=== PATIENT | male | born 1945 | race Caucasian/White ===

== ENCOUNTER 2022-05-15 10:58 | Emergency (ER) | payer MEDICARE, SELFPAY ==
[2022-05-15] VITALS (38 sets, daily range): BP systolic 111–171; BP diastolic 74–97; PULSE 78–108; RESP 13–21; TEMP 36.3–36.7; O2SAT 92–100
--- NOTE | ~2022-05-15 | MR_ITS ---
EXAMINATION: MR brain/brain stem wo/w con DATE: 05/15/2022 15:36 INDICATION: Diplopia. TECHNIQUE: Magnetic resonance imaging (MRI) of the brain and brainstem was performed without and with 20 mL MultiHance intravenous contrast. COMPARISON: Head CT 05/15/2022 FINDINGS: There is no acute ischemic infarct or intracranial hemorrhage. There are scattered areas of nonspecific increased T2-weighted signal intensity in the cerebral white matter, which is within nor mal limits for the patient's age. There are old infarcts in the cerebellum bilaterally. The ventricle s are normal in size. There is mucosal thickening in the paranasal sinuses. CT images demonstrate scl erosis of some of the gonzalez of the sinuses, consistent with chronic sinusitis. There are likely delgado es of ocular lens replacement surgeries. There is a small right mastoid effusion. There is a left shayy mastoid effusion. Partially visualized is a 3.7 cm mixed solid and cystic mass in the right parotid g land. There is a mass of bone marrow replacement involving the clivus. CT images demonstrate a permea tive pattern. IMPRESSION: 1. Old infarcts involving the cerebellum. 2. Mass in the clivus. The differential diagnosis includes metastatic disease, nasopharyngeal carcino ma, multiple myeloma, chordoma, chondrosarcoma, and osteomyelitis. 3. Chronic sinusitis. 4. 3.7 cm mass in right parotid gland. The differential diagnosis includes benign mixed tumor, Warthi n tumor, and less likely primary malignancy. Ultrasound-guided fine-needle aspiration is recommended. Reviewed, dictated and finalized at location A. IMPRESSION: 1. Old infarcts involving the cerebellum. 2. Mass in the clivus. The differential diagnosis includes metastatic disease, nasopharyngeal carcinoma, multiple myeloma, chordoma, chondrosarcoma, and osteo myelitis. 3. Chronic sinusitis. 4. 3.7 cm mass in right parotid gland. The differential diagnosis includes latasha gn mixed tumor, Warthin tumor, and less likely primary malignancy. Ultrasound-g uided fine-needle aspiration is recommended.
--- NOTE | ~2022-05-15 | CT_ITS ---
EXAMINATION: CT brain wo con DATE: 05/15/2022 13:53 INDICATION: diplopia . TECHNIQUE: Computed tomography (CT) of the head was performed without intravenous contrast. The mA wa s adjusted according to patient size. Iterative reconstruction technique was employed. The dose-lengt h product was 681.00 mGy-cm. COMPARISON: None. FINDINGS: No acute intracranial hemorrhage or extra-axial fluid collection. No hydrocephalus, mass, or herniation. No acute ischemic infarct. Unremarkable dural venous sinus attenuation. No acute skull fracture. Lytic destruction of the clinoid process, posterior wall, and inferior wall of the sphenoid sinus. No definite intracranial extension. The cavernous sinuses are symmetric. Bilateral mastoid fluid, left middle ear fluid paranasal sinus mucosal thickening and air-fluid level s involving the sphenoid and ethmoid right frontal and right maxillary sinuses with areas of surround ing osseous sclerosis in the right frontal and right maxillary sinuses. Mild atrophy and chronic white matter change. Old bilateral cerebellar infarcts. Bilateral basal gang jonny calcification. Atherosclerotic intracranial calcification. Bilateral lens replacements. IMPRESSION: 1. 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 2. Left mastoid and middle ear fluid, correlate for clinical findings of left otomastoiditis. 3. Acute on chronic left frontal, left maxillary, sphenoid sinusitis. 4. Recommend MR of the brain with and without contrast for further evaluation. Results reported telephonically to Dr. Kowalski by Dr. Garrett at 2:31 PM on 05/15/2022. Reviewed, dictated and finalized at location K. IMPRESSION: 1. 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 2. Left mastoid and middle ear fluid, correlate for clinical findings of left o tomastoiditis. 3. Acute on chronic left frontal, left maxillary, sphenoid sinusitis. 4. Recommend MR of the brain with and without contrast for further evaluation. Results reported telephonically to Dr. Kowalski by Dr. Garrett at 2:31 PM on 05/06.
--- NOTE | ~2022-05-15 | XR_ITS ---
Portable chest x-ray Comparison: None Clinical History: Weakness Findings: Lungs are clear, without focal consolidation or pleural effusion. Cardiomediastinal silho uette is prominent, with implant will correct device present.. Bones and soft tissues are unremarkabl e. Impression: Clear lungs. Reviewed, dictated and finalized at [facility]. Impression: Clear lungs.
--- NOTE | 2022-05-15 12:58 | ECG_ITS ---
Measurements Intervals [place] Rate: 81 P: 76 WI: 211 QRS: -1 QRSD: 91 T: 52 QT: 368 QTc: 429 Interpretive Statements SINUS RHYTHM WITH FIRST DEGREE AV BLOCK WITH OCCASIONAL VENTRICULAR PREMATURE COMPLEXES BORDERLINE ECG NO PREVIOUS ECG AVAILABLE FOR COMPARISON Electronically Signed On 05-15-2022 17:05:25 CDT by Terrell Medina M.D.
[2022-05-15 13:10] LABS: Basophils Absolute Auto 0.1 K/mm3 (0.0-0.1); Basophils Percent Auto 0.4 % (0.2-1.2); Eosinophils Absolute Auto 0.1 K/mm3 (0-0.3); Eosinophils Percent Auto 0.7 % (0-4.4); Hematocrit 42.9 % (42.0-52.0); Hemoglobin 14.8 g/dL (14.0-18.0); Immature Granulocyte Absolute 0.04 K/mm3 (0.00-0.031); Immature Granulocyte Percent A 0.3 % (0-0.5); Lymphocytes Absolute Auto 3.73 K/mm3 (0.9-3.2); Lymphocytes Percent Auto 30.7 % (18.3-44.2); Mean Corpuscular HGB Conc 34.5 g/dl (32-36); Mean Corpuscular Hemoglobin 33.1 pg (26-34); Mean Platelet Volume 9.4 fl (7.4-10.4); Monocytes Absolute Auto 0.8 K/mm3 (0.1-0.6); Monocytes Percent Auto 6.8 % (2.6-8.5); Neutrophils Absolute Auto 7.4 K/mm3 (1.3-6.7); Neutrophils Percent Auto 61.1 % (45.5-73.1); Platelet Count Result 253 k/mm3 (150-375); Red Blood Count 4.47 M/mm3 (4.6-6.20); Red Cell Distribution Width 12.8 % (11.5-14.5); White Blood Count 12.2 K/mm3 (4.5-10.0)
[2022-05-15 13:23] LABS: INR 1.3; Prothrombin Time 15.4 Seconds (11.1-14.7)
[2022-05-15 13:24] LABS: Partial Thromboplastin Time 31.4 SECONDS (22.3-36.8)
[2022-05-15 14:33] LABS: Alanine Aminotransferase 29 U/L (6-50); Albumin Level 4.3 g/dL (3.5-5.1); Alkaline Phosphatase 92 U/L (38-126); Anion Gap 10 mmol/L (8-16); Aspartate Amino Transferase 33 U/L (17-59); Bilirubin,Total 1.7 mg/dL (0.2-1.3); Blood Urea Nitrogen 22 mg/dL (9-20); Calcium 8.7 mg/dL (8.4-10.2); Carbon Dioxide 22 mmol/L (22-30); Chloride 102 mmol/L (98-107); Estimated CRCL calculation 108 ml/min; Estimated Glomerular Filt Rate > 60; Glucose 128 mg/dL (65-110); Potassium 4.2 mmol/L (3.4-5.0); Sodium 134 mmol/L (137-145)
[2022-05-15 14:44] LABS: Troponin I < 0.012 ng/mL (0.000-0.034)
--- NOTE | 2022-05-15 18:09 | ED.NEUROSD ---
HPI - Neuro Symptoms/Deficit General Chief Complaint: Neuro Symptoms/Deficit Stated Complaint: Double Vision Time Seen by Provider: 05/15/22 13:08 Source: patient Mode of arrival: ambulatory Limitations: no limitations History of Present Illness HPI Narrative: 77-year-old with a history of A-fib with a loop monitor, right parotid swelling which is been there for last 9 months had a recent biopsy which was benign he had with the complaints of diplopia for past 5 days. Patient states that he has been dealing with sinus infection for past 7 to 10 days. He also mentions that he is scheduled for parotidectomy the beginning of June. He denies any fever or chills no history of trauma. Patient states that he had his eyes evaluated a year ago by rake operator and was nothing to worry about. Patient states when he closes 1 eye he is not having issues when he opens both eyes hurts when he sees double vision. Also has mild headache but which has been ongoing for a while. Onset (ago): day(s) (5) Severity: moderate Relieving factors: none Exacerbating factors: none Context: gradual onset Associated symptoms: denies other symptoms Related Data Allergies Allergy/AdvReac Type Severity Reaction Status Date / Time No Known Allergies Allergy Verified 05/15/22 13:00 Review of Systems Review of Systems: All systems reviewed & are unremarkable except as noted in HPI and below Constitutional: Constitutional: Reports no additional constitutional complaints Eyes: Eyes: Reports as per HPI ENT: Reports as per HPI Cardiovascular: Cardiovascular: Reports no additional cardiovascular complaints Gastrointestinal: Gastrointestinal: Reports no additional gastrointestinal complaints Musculoskeletal: Musculoskeletal: Reports no additional musculoskeletal complaints Neurologic: Reports system reviewed and no additional complaints, except as documented Exam Narrative: GENERAL: Well-appearing, well-nourished, and in no acute distress. HEAD: Normocephalic, atraumatic. EYES: PERRLA and EOMI. ENT: Nares clear, no rhinorrhea , right parotid swelling noted. NECK: Supple. CHEST: Clear to auscultation. No respiratory distress. HEART: Regular rate and rhythm. No murmur heard. Normal peripheral pulses. ABDOMEN: Soft, nontender, nondistended, normal active bowel sounds. EXTREMITIES: Normal range of motion. No edema. SKIN: Warm, dry, no rash. NEURO: No focal deficits. Alert and oriented x3. PSYCH: Normal mood and affect. Course Course Emergency Course: Patient had a CT scan followed by MRI which showed a mass in the clivus etiology is clear at this time. Discussed with Dr. Trinidad at [facility] accepted the patient in transfer. I had a long discussion with the patient and his about the lab work and MRI findings. They are agreeable for transfer. Vital Signs Vital signs: Vital Signs Temperature 36.3 C L 05/15/22 11:05 Pulse Rate 97 05/15/22 11:05 Respiratory Rate 16 05/15/22 11:05 Blood Pressure 111/91 H 05/15/22 11:05 Pulse Oximetry 98 05/15/22 11:05 Oxygen Delivery Room Air 05/15/22 11:05 Temperature 36.7 C 05/15/22 16:45 Pulse Rate 82 05/15/22 16:45 Respiratory Rate 18 05/15/22 16:45 Blood Pressure 171/97 H 05/15/22 16:45 Pulse Oximetry 98 05/15/22 16:45 Oxygen Delivery Room Air 05/15/22 11:05 Transfer Transfered to: [facility] MDM - Neuro Symptoms/Deficit MDM Narrative Medical decision making narrative: With a 5-day history of diplopia and underlying sinus disease we will do a CT of the head and lab work. Medical Records Attestation: I reviewed the patient's medical records. Lab Data Attestation: I reviewed the patient's lab results. 05/15/22 13:01 05/15/22 14:13 Labs: Lab Results 05/15/22 05/15/22 05/15/22 Range/Units 13:01 13:01 14:13 WBC 12.2 H (4.5-10.0) K/mm3 RBC 4.47 L (4.6-6.20) M/mm3 Hgb 14.8 (14.0-18.0) g
[2022-05-15] MEDS: MELATONIN 5 MG TABLET PO (22:41)
[2022-05-16] VITALS (29 sets, daily range): BP systolic 108–159; BP diastolic 62–90; PULSE 60–103; RESP 14–18; TEMP 36.5; O2SAT 93–98
[2022-05-16 10:27] LABS: Glucose Point of Care 144 mg/dl (65-105)
--- NOTE | 2022-05-16 15:06 | PC.NURSE ---
05/16/22 1503, update with Laura viramontes, still waiting.
--- NOTE | 2022-05-16 17:03 | PC.NURSE ---
Per vijay Hutchison for patient to take home medications.
[2022-05-17] VITALS (12 sets, daily range): BP systolic 109–145; BP diastolic 62–100; PULSE 80–109; RESP 15–27; O2SAT 92–98
--- NOTE | 2022-05-17 00:04 | PC.NURSE ---
[facility] was updated with vitals for the patient.
--- NOTE | 2022-05-17 01:11 | PC.NURSE ---
Patient is sleeping comfortably.
--- NOTE | 2022-05-17 07:22 | PC.NURSE ---
Report received from Irving NORMAN, care assumed
--- NOTE | 2022-05-17 10:19 | PC.NURSE ---
Report given to Jenny NORMAN at [facility]. Questions answered. PT given bed assignment of [id number] Bed 2
== END 2022-05-17 11:54 | disposition short-term general hospital (02) ==
PROVIDERS: Emergency Provider Family Medicine
DX: H53.2 Diplopia (principal); I48.91 Unspecified atrial fibrillation; K11.8 Other diseases of salivary glands; M89.8X8 Other specified disorders of bone, other site; J32.9 Chronic sinusitis, unspecified; Z79.84 Long term (current) use of oral hypoglycemic drugs; Z79.02 Long term (current) use of antithrombotics/antiplatelets
CPT/HCPCS: 36415; 70450; 70553; 71045; 80053; 82948; 84484; 85025; 85610; 85730; 93005; 99285; A9270; A9577

== ENCOUNTER 2022-12-30 14:38 | Emergency (ER) | payer OTHER, MEDICARE, SELFPAY ==
--- NOTE | ~2022-12-30 | XR_ITS ---
EXAM: XR abdomen gastric tube insert DATE: 12/30/2022 15:24 HISTORY: placement, G-TUBE . COMPARISON: None available. FINDINGS: Partially visualized spinal fusion hardware. Degenerative changes in the spine. G-tube bal loon within the body of the stomach, with adjacent fixation staple. Contrast partially fills the stom ach and the duodenal C-loop following the injection of 50 cc Omnipaque 350. Normal bowel gas pattern. IMPRESSION: G-tube, in good position. Reviewed, dictated and finalized at location K. BULATORY TECHNOLOGIST IMPRESSION: G-tube, in good position.
[2022-12-30 14:39] VITALS: BP 101/65; PULSE 89; RESP 16; TEMP 36.6; O2SAT 100
--- NOTE | 2022-12-30 15:56 | ED.GENADULT ---
HPI - General Adult General Chief complaint: Unspecified Stated complaint: g tube Time Seen by Provider: 12/30/22 14:40 History of Present Illness HPI narrative: Patient is a 77-year-old male who presents ER due to G-tube dysfunction. It became clogged with a multivitamin and they were unable to dislodge the clot with direct manipulation and injection of soda. 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 Related Data Home Medications Medication Instructions Recorded Confirmed atorvastatin 40 mg tablet 40 mg DAILY 05/16/22 12/25/22 dabigatran etexilate 150 mg capsule 150 mg PO BID 05/16/22 12/25/22 empagliflozin 10 mg tablet 10 mg DAILY 05/16/22 12/25/22 (Jardiance) metformin 500 mg tablet 500 mg BID 05/16/22 12/25/22 metoprolol succinate 25 mg 12.5 mg PO DAILY 05/16/22 12/25/22 tablet,extended release 24 hr Adult Multivitamin with Iron 15 ml G-tube DAILY 12/25/22 12/25/22 acetaminophen 650 tablet G-tube Q4H PRN for pain 12/25/22 12/25/22 apixaban 5 mg BYMOUTH Q12H 12/25/22 12/25/22 aspirin 81 mg BYMOUTH DAILY 12/25/22 12/25/22 atorvastatin 80 mg BYMOUTH DAILY 12/25/22 12/25/22 baclofen 10 mg G-tube Q8H 12/25/22 12/25/22 bethanechol chloride 10 mg G-tube TID 12/25/22 12/25/22 clopidogrel 75 mg tablet 75 mg feeding tube DAILY 12/25/22 12/25/22 empagliflozin 10 mg tablet 10 mg PO DAILY 12/25/22 12/25/22 famotidine 20 mg G-tube DAILY to reduce 12/25/22 12/25/22 stomach acid ferrous sulfate 44 mg G-tube 3XW 12/25/22 12/25/22 insulin glargine 24 units subcut HS for diabetes 12/25/22 12/25/22 insulin lispro 5 units subcut TID for diabetes 12/25/22 12/25/22 losartan 12.5 mg BYMOUTH DAILY for 12/25/22 12/25/22 heart/blood pressure metoprolol tartrate 25 mg BYMOUTH BID for heart 12/25/22 12/25/22 mirtazapine 7.5 mg BYMOUTH HS for sleep 12/25/22 12/25/22 polyethylene glycol 17 g G-tube PRN PRN Constipation 12/25/22 12/25/22 Allergies Allergy/AdvReac Type Severity Reaction Status Date / Time No Known Allergies Allergy Verified 05/15/22 13:00 Review of Systems Constitutional: Constitutional: Reports no additional constitutional complaints Gastrointestinal: Gastrointestinal: Reports no additional gastrointestinal complaints [facility] Past Medical History Medical History (Updated 12/30/22 @ 16:31 by Avery Mendez MD) Atrial fibrillation History of nasopharyngeal cancer History of paronychia of finger History of parotid cancer NSTEMI (non-ST elevated myocardial infarction) Type 2 diabetes mellitus Surgical History Surgical History (Updated 12/30/22 @ 16:31 by Avery Mendez MD) PEG (percutaneous endoscopic gastrostomy) status Social History Social History Alcohol intake: unknown Substance use: unknown Spiritual care concerns: No Exam Narrative: GENERAL: Chronically ill-appearing, well-nourished, and in no acute distress. HEAD: Normocephalic, atraumatic. ENT: Mucous membranes moist. ABDOMEN: Soft, nontender, nondistended. G-tube in the epigastrium with normal surrounding tissue. SKIN: Warm, dry, no rash. NEURO: Alert and oriented x3. PSYCH: Normal mood and affect. Course Course Emergency Course: Patient resting comfortably. G-tube exchanged. Discharge home. Vital Signs Vital signs: Vital Signs Temperature 98 F 12/30/22 14:39 Pulse Rate 89 12/30/22 14:39 Respiratory Rate 16 12/30/22 14:39 Blood Pressure 101/65 12/30/22 14:39 Pulse Oximetry 100 12/30/22 14:39 Oxygen Delivery Room Air 12/30/22 14:39 Temperature 98 F 12/30/22 14:39 Pulse Rate 89 12/30/22 14:39 Respiratory Rate 16 12/30/22 14:39 Blood Pressure 101/65 12/30/22 14:39 Pulse Oximetry 100 12/30/22 14:39 Oxygen Delivery Room Air 12/30/22 14:39 Procedures Feeding Tube Replacement Feeding Tube #1: Feeding Tube Placement Date: 12/30/[address]
[2022-12-30 16:35] VITALS: BP 116/67; PULSE 72; RESP 20; O2SAT 99
== END 2022-12-30 16:39 ==
PROVIDERS: Emergency Provider Emergency Medicine; PCP Internal Medicine
DX: K94.23 Gastrostomy malfunction (principal); I48.91 Unspecified atrial fibrillation; E11.9 Type 2 diabetes mellitus without complications; I25.2 Old myocardial infarction; Z85.818 Personal history of malignant neoplasm of other sites of lip, oral cavity, and pharynx; Z85.858 Personal history of malignant neoplasm of other endocrine glands; Z79.84 Long term (current) use of oral hypoglycemic drugs; Z79.82 Long term (current) use of aspirin; Z79.01 Long term (current) use of anticoagulants; Z79.4 Long term (current) use of insulin
CPT/HCPCS: 43762; 99283

== ENCOUNTER 2023-03-05 12:35 | Emergency (ER) | payer MEDICARE, SELFPAY ==
--- NOTE | ~2023-03-05 | XR_ITS ---
EXAM: XR abdomen gastric tube insert DATE: 03/05/2023 19:50 HISTORY: gastrografin to make sure the tube inside the sto . COMPARISON: 12/30/2022. FINDINGS: Clear lung bases. Surgical clips over the central abdomen. Partially visualized thoracolum bar fusion hardware. Contrast present in the colon in the spring floor service worker view. Following contrast instillation of 60 mL Gastrografin through the G-tube, contrast fills a normal-appearing stomach and duodenal C-l oop. G-tube balloon in the body of the stomach. No extravasation. Normal bowel gas pattern. IMPRESSION: G-tube, in good position. Reviewed, dictated and finalized at location K. T MECHANIC IMPRESSION: G-tube, in good position.
--- NOTE | ~2023-03-05 | XR_ITS ---
EXAMINATION: XR abdomen gastric tube rechec DATE: 03/05/2023 14:43 INDICATION: Gastrostomy tube dysfunction. TECHNIQUE: A supine view of the abdomen was obtained. COMPARISON: Abdomen radiograph 12/30/2022 FINDINGS: There are no dilated loops of bowel. There is a gastrostomy tube in expected position. Ther e is contrast in the tube and in the stomach and duodenum. There are changes of posterior fixation pr ocedure in thoracolumbar spine. IMPRESSION: 1. Gastrostomy tube in expected position. Reviewed, dictated and finalized at location A. DIRECTOR
[2023-03-05 12:56] VITALS: BP 127/77; PULSE 94; RESP 16; TEMP 36.5; O2SAT 99
--- NOTE | 2023-03-05 14:08 | ED.GENADULT ---
HPI - General Adult General Chief complaint: Unspecified Stated complaint: clogged feeding tube Time Seen by Provider: 03/05/23 15:03 History of Present Illness HPI narrative: Focused HPI: [id number] Cornell is a 78 y/o male who presents with reports that he has a feeding tube that is not working properly. He states that it was last replaced about 2 months ago here and he went to a rehab facility and it has progressively become slower and slower and now what used to take 30 minutes to infuse is taking over 3 hours. He states that the rehab facility tried multiple things to get it to flow better including sticking things down it but nothing works He states he can barely get much to go through. Denies abdominal pain/nausea/vomiting/ fever chills. The feeding tube was placed s/p radiation to the point of not being able to swallow anymore - Original Tube was placed this passed July and had it last replaced about 1-2 months ago. Patient has only been getting about 1/2 of the required feedings for nutrition over the past few days. GENERAL: Appears chronically ill -well-nourished, and in no acute distress. HEAD: Normocephalic, atraumatic. CHEST: Clear to auscultation. ?No respiratory distress. HEART: Regular rate and rhythm.? NEURO: ?Alert and oriented x3. Patient screened in triage and initial orders placed.? ?Additional care and disposition to be based upon?diagnostic testing and treatment. Related Data Allergies Allergy/AdvReac Type Severity Reaction Status Date / Time No Known Allergies Allergy Verified 03/05/23 14:58 PMFSH Past Medical History Medical History Atrial fibrillation History of nasopharyngeal cancer History of paronychia of finger History of parotid cancer NSTEMI (non-ST elevated myocardial infarction) Type 2 diabetes mellitus Surgical History Surgical History PEG (percutaneous endoscopic gastrostomy) status Social History Social History Alcohol intake: unknown Substance use: unknown Spiritual care concerns: No Course Vital Signs Vital signs: Vital Signs Temperature 36.5 C 03/05/23 12:56 Pulse Rate 94 03/05/23 12:56 Respiratory Rate 16 03/05/23 12:56 Blood Pressure 127/77 03/05/23 12:56 Pulse Oximetry 99 03/05/23 12:56 Oxygen Delivery Room Air 03/05/23 12:56 Temperature 36.5 C 03/05/23 12:56 Pulse Rate 83 03/05/23 20:15 Respiratory Rate 16 03/05/23 20:15 Blood Pressure 113/70 03/05/23 20:15 Pulse Oximetry 100 03/05/23 20:15 Oxygen Delivery Room Air 03/05/23 12:56 Medical Decision Making Vital Signs Vital Signs: Vital Signs Temperature 36.5 C 03/05/23 12:56 Pulse Rate 94 03/05/23 12:56 Respiratory Rate 16 03/05/23 12:56 Blood Pressure 127/77 03/05/23 12:56 Pulse Oximetry 99 03/05/23 12:56 Oxygen Delivery Room Air 03/05/23 12:56 Temperature 36.5 C 03/05/23 12:56 Pulse Rate 83 03/05/23 20:15 Respiratory Rate 16 03/05/23 20:15 Blood Pressure 113/70 03/05/23 20:15 Pulse Oximetry 100 03/05/23 20:15 Oxygen Delivery Room Air 03/05/23 12:56 Lab Data 03/05/23 15:17 03/05/23 15:17 Labs: Lab Results 03/05/23 03/05/23 Range/Units 15:17 15:24 WBC 8.4 (4.5-10.0) K/mm3 RBC 4.44 L (4.6-6.20) M/mm3 Hgb 13.6 L D (14.0-18.0) g/dL Hct 42.0 (42.0-52.0) % MCV 94.6 (80-100) fl MCH 30.6 (26-34) pg MCHC 32.4 (32-36) g/dl RDW 17.5 H (11.5-14.5) % Plt Count 271 (150-375) k/mm3 MPV 9.3 (7.4-10.4) fl Immature Gran % (Auto) 0.4 (0-0.5) % Neut % (Auto) 65.8 (45.5-73.1) % Lymph % (Auto) 22.5 (18.3-44.2) % [place] % (Auto) 9.9 H (2.6-8.5) % Eos % (Auto) 0.8 (0-4.4) % Baso % (Auto) 0.6 (0.2-1.2) % Lymph # (Auto) 1.89 (0.9-3.2) K/mm3 [place] # (Auto) 0.8 H (0.1-0.
--- NOTE | 2023-03-05 15:05 | ED.GENADULT ---
HPI - General Adult General Chief complaint: Unspecified Stated complaint: clogged feeding tube Time Seen by Provider: 03/05/23 15:03 Source: patient Mode of arrival: ambulatory Limitations: no limitations History of Present Illness HPI narrative: 78 years old white male came to the ED with trouble managing his feeding tube. Patient reports that his feeding tube is clogged and he have to push very hard to get the stuff in. He denies any abdominal pain, fever, chills, nausea, vomiting. Last change was 2 months ago in our emergency room. Patient had feeding tube months ago secondary to nasopharyngeal cancer, status post radiation therapy and chemotherapy. Related Data Allergies Allergy/AdvReac Type Severity Reaction Status Date / Time No Known Allergies Allergy Verified 03/05/23 14:58 Review of Systems Review of Systems: All systems reviewed & are unremarkable except as noted in HPI and below PMFSH Past Medical History Medical History Atrial fibrillation History of nasopharyngeal cancer History of paronychia of finger History of parotid cancer NSTEMI (non-ST elevated myocardial infarction) Type 2 diabetes mellitus Surgical History Surgical History PEG (percutaneous endoscopic gastrostomy) status Social History Social History Alcohol intake: unknown Substance use: unknown Spiritual care concerns: No Exam Narrative: General appearance: Well-developed, well-nourished Skin: Normal color Head: Normocephalic, nontraumatic Eyes: Clear conjunctiva ENT: Oropharynx normal, ears normal, nose normal Neck: Supple, nontender Chest and respiratory: Airway patent, no respiratory distress, no accessory muscle use Heart: Regular rate/rhythm Abdomen: Soft, nontender, no organomegaly, quiet bowel sounds , feeding tube in place Vascular: Normal peripheral pulses, normal capillary refill. Musculoskeletal: Normal range of motion, nontender back Neurologic: Alert and oriented ?3, PRODUCTION SKI REPAIRER is normal as tested, no gross motor deficit Course Vital Signs Vital signs: Vital Signs Temperature 36.5 C 03/05/23 12:56 Pulse Rate 94 03/05/23 12:56 Respiratory Rate 16 03/05/23 12:56 Blood Pressure 127/77 01/29/24 12:56 Pulse Oximetry 99 03/05/23 12:56 Oxygen Delivery Room Air 03/05/23 12:56 Temperature 36.5 C 03/05/23 12:56 Pulse Rate 78 03/05/23 18:15 Respiratory Rate 16 03/05/23 18:15 Blood Pressure 116/73 03/05/23 18:15 Pulse Oximetry 98 03/05/23 18:15 Oxygen Delivery Room Air 03/05/23 12:56 Procedures Feeding Tube Replacement Feeding Tube #1: Feeding Tube Placement Date: 03/05/23 Feeding Tube Placement Time: 20:13 Type of Tube: gastrostomy Insertion Site Prior to Procedure: clean Tube Used for Reinsertion: other ( Hospital tube) Maltese Tube Size (F): 16 Balloon size (mL): 5 Verification of Placement: gastrografin injection Tube Secured by: tape/dressing Patient Tolerated Procedure: well Medical Decision Making Differential Diagnosis Differential Diagnosis: patient presents with clogged feeding tube, Replacement was done, patient tolerated the procedure well, Medical Records Medical records reviewed: Yes I reviewed the external patient's medical records. Vital Signs Vital Signs: Vital Signs Temperature 36.5 C 03/05/23 12:56 Pulse Rate 94 03/05/23 12:56 Respiratory Rate 16 03/05/23 12:56 Blood Pressure 127/77 03/05/23 12:56 Pulse Oximetry 99 03/05/23 12
[2023-03-05 15:27] LABS: Glucose Point of Care 185 mg/dl (65-105)
[2023-03-05 15:32] LABS: Basophils Absolute Auto 0.1 K/mm3 (0.0-0.1); Basophils Percent Auto 0.6 % (0.2-1.2); Eosinophils Absolute Auto 0.1 K/mm3 (0-0.3); Eosinophils Percent Auto 0.8 % (0-4.4); Hemoglobin 13.6 g/dL (14.0-18.0); Immature Granulocyte Absolute 0.03 K/mm3 (0.00-0.031); Immature Granulocyte Percent A 0.4 % (0-0.5); Lymphocytes Absolute Auto 1.89 K/mm3 (0.9-3.2); Lymphocytes Percent Auto 22.5 % (18.3-44.2); Mean Corpuscular HGB Conc 32.4 g/dl (32-36); Mean Corpuscular Hemoglobin 30.6 pg (26-34); Mean Corpuscular Volume 94.6 fl (80-100); Mean Platelet Volume 9.3 fl (7.4-10.4); Monocytes Absolute Auto 0.8 K/mm3 (0.1-0.6); Monocytes Percent Auto 9.9 % (2.6-8.5); Neutrophils Absolute Auto 5.5 K/mm3 (1.3-6.7); Neutrophils Percent Auto 65.8 % (45.5-73.1); Platelet Count Result 271 k/mm3 (150-375); Red Blood Count 4.44 M/mm3 (4.6-6.20); Red Cell Distribution Width 17.5 % (11.5-14.5); White Blood Count 8.4 K/mm3 (4.5-10.0)
[2023-03-05 15:48] LABS: Alanine Aminotransferase 49 U/L (6-50); Albumin Level 4.1 g/dL (3.5-5.1); Alkaline Phosphatase 107 U/L (38-126); Anion Gap 9 mmol/L (8-16); Aspartate Amino Transferase 58 U/L (17-59); Bilirubin,Total 1.4 mg/dL (0.2-1.3); Blood Urea Nitrogen 24 mg/dL (9-20); Calcium 9.5 mg/dL (8.4-10.2); Carbon Dioxide 23 mmol/L (22-30); Chloride 102 mmol/L (98-107); Estimated CRCL calculation 125 ml/min; Estimated Glomerular Filt Rate > 60; Glucose 167 mg/dL (65-110); Potassium 4.3 mmol/L (3.4-5.0); Sodium 134 mmol/L (137-145)
[2023-03-05 18:15] VITALS: BP 116/73; PULSE 78; RESP 16; O2SAT 98
--- NOTE | 2023-03-05 19:17 | PC.NURSE ---
Pt feeding tube replaced with 16Fr [employer] EndVive G-tube
--- NOTE | 2023-03-05 19:25 | PC.NURSE ---
Report given to Halle NORMAN, all questions answered
[2023-03-05 20:15] VITALS: BP 113/70; PULSE 83; RESP 16; O2SAT 100
== END 2023-03-05 20:16 | disposition home or self-care (01) ==
PROVIDERS: Nurse Practitioner Family; Emergency Provider Emergency Medicine; PCP Internal Medicine
DX: Z43.1 Encounter for attention to gastrostomy (principal); I48.91 Unspecified atrial fibrillation; E11.9 Type 2 diabetes mellitus without complications; I25.2 Old myocardial infarction
CPT/HCPCS: 36415; 43762; 80053; 82948; 85025; 99283; J1642